=== PATIENT | female | born 1995 | race Asian ===

== ENCOUNTER 2017-01-19 16:29 | Emergency (ER) | payer SELFPAY ==
[~2017-01-19] VITALS: Ht 152.4 cm; Wt 52.3 kg
[2017-01-19 16:32] VITALS: BP 118/79
== END 2017-01-19 18:29 | disposition left against medical advice (07) ==
LOC: EMS 16:31
DX: L02.411 Cutaneous abscess of right axilla (principal); Z53.21 Procedure and treatment not carried out due to patient leaving prior to being seen by health care provider